=== PATIENT | female | born 1995 | race Caucasian/White ===

== ENCOUNTER 2024-01-03 19:33 | Inpatient (IN) | payer BC, SELFPAY ==
[2024-01-03 19:51] VITALS: BP 134/88
[2024-01-03] MEDS: CYTOTEC 50 MICROGRAM VAG (20:24)
[2024-01-03 20:51] LABS: % Basophils 0.5 % (0-2); % Eosinophils 1.1 % (0-6); % Immature Granulocytes 0.5 % (0-0.5); % Lymphocytes 16.8 % (20.5-51.1); % Monocytes 8.1 % (1.7-9.3); Absolute Basophils 0.1 10^3/uL (0-0.2); Absolute Eosinophils 0.1 10^3/uL (0-0.7); Absolute Immature Granulocytes 0.1 10^3/uL (0-0.05); Absolute Lymphocytes 1.8 10^3/uL (1.2-3.4); Absolute Monocytes 0.9 10^3/uL (0.1-0.6); Hematocrit 36.5 % (37.0-47.0); Mean Corp Hgb Conc. 35.6 g/dL (33.0-37.0); Mean Corpuscular Hgb 29.7 pg (27.0-31.0); Mean Corpuscular Volume 83.3 fL (81.0-99.0); Mean Platelet Volume 12.8 fL (7.4-10.4); Nucleated Red Blood Cells % 0 %; Platelet Count 178 10^3/uL (130-400); Red Blood Cell Count 4.38 10^6/uL (4.20-5.40); Red Cell Dist. Width 13.2 % (11.5-14.5); White Blood Cell Count 10.9 10^3/uL (4.8-10.8)
[2024-01-04] MEDS: CYTOTEC 25 MICROGRAM PO (00:36)
[2024-01-04] MEDS: SUBLIMAZE 100 MCG EPIDURAL (04:28)
[2024-01-04] MEDS: FENTANYL/BUPIVACAINE 100 EPIDURAL ×2 (04:28→11:40)
[2024-01-04] MEDS: CYTOTEC PO (05:28)
[2024-01-04] MEDS: PITOCIN 30 UNITS/NSS 500 ML IV (07:42)
[2024-01-04] MEDS: LR 1000 IV (07:42)
[2024-01-05 05:25] LABS: Hematocrit 34.4 % (37.0-47.0); Hemoglobin 12.2 g/dL (12.0-16.0)
[2024-01-05] MEDS: PRENATAL PLUS 1 TABLET PO (08:37)
[2024-01-05] MEDS: TYLENOL 650 MG PO (16:27)
[2024-01-05] MEDS: MOTRIN 600 MG PO (16:27)
[2024-01-06] MEDS: PRENATAL PLUS 1 TABLET PO (08:26)
[2024-01-08 14:49] LABS: Syphilis/T. pallidum Ab Reflex Negative (Negative)
== END 2024-01-06 15:03 | disposition home or self-care (01) | DRG 807 ==
LOC: LDRP 19:33
PROVIDERS: Obstetrics & Gynecology; ADMITTING PHYSICIAN Obstetrics & Gynecology; FAMILY PHYSICIAN Family Medicine
PROC: 0KQM0ZZ Repair Perineum Muscle, Open Approach (ICD-10-PCS; 2024-01-04)
PROC: 3E033VJ Introduction of Other Hormone into Peripheral Vein, Percutaneous Approach (ICD-10-PCS; 2024-01-04)
PROC: 10E0XZZ Delivery of Products of Conception, External Approach (ICD-10-PCS; 2024-01-04)
PROC: 3E0P7VZ Introduction of Hormone into Female Reproductive, Via Natural or Artificial Opening (ICD-10-PCS; 2024-01-04)
DX: O48.0 Post-term pregnancy (principal); Z37.0 Single live birth; Z3A.40 40 weeks gestation of pregnancy; O77.0 Labor and delivery complicated by meconium in amniotic fluid; O70.1 Second degree perineal laceration during delivery; O69.81X0 Labor and delivery complicated by cord around neck, without compression, not applicable or unspecified
CPT/HCPCS: 88307; 36415; 85014; 85018; 85025; 86780; 86850; 86900; 86901

== ENCOUNTER → 2024-12-31 13:20 | Outpatient (REF) | payer OTHER, SELFPAY | LOC: RAD 13:20 | PROVIDERS: ATTENDING PHYSICIAN Nurse Practitioner Family; FAMILY PHYSICIAN Family Medicine | DX: O26.851 Spotting complicating pregnancy, first trimester (principal) | CPT/HCPCS: 76801; 76817 ==